=== PATIENT | female | born 1985 | race Caucasian/White ===

== ENCOUNTER 2017-07-06 05:36 | Day surgery (SDC) | payer MEDICAID ==
[~2017-07-06] VITALS: Ht 157.5 cm; Wt 61.7 kg
[2017-07-06 06:33] LABS: CHLORIDE 106 mEq/L (98-107)
[2017-07-06 06:38] LABS: BASOPHILS % 0.6 % (0.0-2.0); EOSINOPHILS % 2.5 % (0.0-5.0); HEMATOCRIT. 40.9 % (36.0-48.0); HEMOGLOBIN. 13.8 g/dL (12.0-16.0); LYMPHOCYTES % 34.9 % (20.0-50.0); MEAN CORPUSCULAR HEMOGLOBIN 28.9 pg (28.0-32.0); MEAN CORPUSCULAR VOLUME 85.5 fL (81.0-99.0); MONOCYTES % 7.3 % (2.0-8.0); NEUTROPHILS % 54.7 % (40.0-76.0); PLATELET 191 x1000/uL (130-400); RED BLOOD CELL COUNT 4.79 mill/uL (4.2-5.4); RED CELL DISTRIBUTION WIDTH 14.5 % (11.6-14.6)
[2017-07-06 06:40] LABS: CLARITY URINE CLEAR (CLEAR); COLOR URINE YELLOW (YELLOW); GLUCOSE URINE NEGATIVE (NEGATIVE); KETONES URINE NEGATIVE (NEGATIVE); LEUKOCYTE ESTERASE URINE TRACE (NEGATIVE); NITRITE URINE NEGATIVE (NEGATIVE); OCCULT BLOOD URINE NEGATIVE (NEGATIVE); PROTEIN URINE NEGATIVE (NEGATIVE); SPECIFIC GRAVITY URINE 1.023 (1.005-1.030); UROBILINOGEN URINE 0.2 E.U./dL (0.2-1.0)
[2017-07-06] MEDS ORDERED: LACTATED RINGERS 1,000 ML IV SCH (06:40)
[2017-07-06 06:41] LABS: CARBON DIOXIDE 30 mEq/L (21-32)
[2017-07-06 06:43] LABS: INR 1.1; PARTIAL THROMBOPLASTIN TIME 30.9 sec (24.0-34.0)
[2017-07-06 06:43] LABS: UCG SCREEN NEGATIVE
[2017-07-06] MEDS ORDERED: BUPIVACAINE HCL 0.5% (5MG/ML) 50ML ONE (07:31)
[2017-07-06] MEDS ORDERED: VASOPRESSIN 20 UNIT/ML 1ML ONE (08:46)
[2017-07-06] MEDS ORDERED: MIDAZOLAM HCL 2 MG/2 ML VIAL ONE (08:59)
[2017-07-06] MEDS ORDERED: FENTANYL CITRATE/PF 50MCG/ML 2ML VIAL ONE ×2 (09:01→09:26)
[2017-07-06] MEDS ORDERED: ROCURONIUM BROMIDE 10MG/ML VIAL 5ML IV ONE (09:03)
[2017-07-06] MEDS ORDERED: LIDOCAINE HCL 1% 20ML VIAL (Pyxis) INJ ONE (09:03)
[2017-07-06] MEDS ORDERED: PROPOFOL 200MG/20ML VIAL IV ONE (09:03)
[2017-07-06] MEDS ORDERED: CEFAZOLIN SODIUM 1000MG/VIAL ONE (09:16)
[2017-07-06] MEDS ORDERED: DEXAMETHASONE 4MG/ML 1ML VIAL ONE (09:18)
[2017-07-06] MEDS ORDERED: METOCLOPRAMIDE HCL 10MG/2ML VIAL ONE (09:18)
[2017-07-06] MEDS ORDERED: ONDANSETRON HCL 4MG/2ML VIAL ONE (09:18)
[2017-07-06] MEDS ORDERED: SODIUM CHLORIDE 0.9% 1,000 ML IV SCH (09:31)
[2017-07-06] MEDS ORDERED: SKIN ADHESIVE 0.7 GM EA TOP ONE (09:37)
[2017-07-06] MEDS ORDERED: HYDROMORPHONE HCL/PF 2MG/ML CPJ IV PRN (09:45)
[2017-07-06] MEDS ORDERED: MEPERIDINE HCL/PF 25MG/ML CPJ IV PRN (09:45)
[2017-07-06] MEDS ORDERED: ONDANSETRON HCL 4MG/2ML VIAL IV PRN (09:45)
[2017-07-06] MEDS ORDERED: GLYCOPYRROLATE 0.2 MG/ML 2ML VIAL ONE (09:49)
[2017-07-06 11:05] VITALS: BP 130/69
== END 2017-07-06 12:45 | disposition home or self-care (01) ==
LOC: OR 05:36
PROVIDERS: ATTEND Obstetrics & Gynecology
DX: Z64.1 Problems related to multiparity (principal); Z30.2 Encounter for sterilization; Z98.41 Cataract extraction status, right eye; Z96.1 Presence of intraocular lens
CPT/HCPCS: 36415; 58670; 80048; 81001; 81025; 85025; 85610; 85730; C1725; G0168; J0690; J1100; J2175; J2250; J2405; J2765; J3010; J3490; J7042; J7120; J2704

== ENCOUNTER 2018-06-30 17:52 | Emergency (ER) | payer MEDICAID ==
[~2018-06-30] VITALS: Ht 157.5 cm; Wt 65.0 kg
[2018-06-30 19:38] LABS: BASOPHILS % 0.3 % (0.0-2.0); CHLORIDE 105 mEq/L (98-107); EOSINOPHILS % 1.2 % (0.0-5.0); HEMATOCRIT. 38.1 % (36.0-48.0); HEMOGLOBIN. 12.9 g/dL (12.0-16.0); LYMPHOCYTES % 22.5 % (20.0-50.0); MEAN CORPUSCULAR HEMOGLOBIN 29.1 pg (28.0-32.0); MEAN PLATELET VOLUME 9.1 fl (7.4-10.4); MONOCYTES % 5.9 % (2.0-8.0); NEUTROPHILS % 70.1 % (40.0-76.0); PLATELET 189 x1000/uL (130-400); RED BLOOD CELL COUNT 4.43 mill/uL (4.2-5.4); RED CELL DISTRIBUTION WIDTH 13.9 % (11.6-14.6)
[2018-06-30 20:00] LABS: B-HCG QUANTITATIVE 51962 mIU/mL (<3)
[2018-06-30 21:36] LABS: CLARITY URINE CLEAR (CLEAR); COLOR URINE YELLOW (YELLOW); KETONES URINE 3+ (NEGATIVE); LEUKOCYTE ESTERASE URINE 1+ (NEGATIVE); NITRITE URINE NEGATIVE (NEGATIVE); OCCULT BLOOD URINE NEGATIVE (NEGATIVE); PH URINE 6.5 (4.5-8.0); PROTEIN URINE NEGATIVE (NEGATIVE); SPECIFIC GRAVITY URINE 1.019 (1.005-1.030); UROBILINOGEN URINE 0.2 E.U./dL (0.2-1.0)
[2018-06-30 22:09] VITALS: BP 108/51
== END 2018-06-30 22:15 | disposition home or self-care (01) ==
LOC: ER 17:52
DX: O23.12 Infections of bladder in pregnancy, second trimester (principal); O26.892 Other specified pregnancy related conditions, second trimester; Z3A.14 14 weeks gestation of pregnancy; Z98.51 Tubal ligation status
CPT/HCPCS: 36415; 76801; 80048; 81003; 84702; 85025; 86850; 86900; 86901; 99285; Z7610

== ENCOUNTER 2018-12-16 07:23 | Inpatient (IN) | payer MEDICAID ==
[~2018-12-16] VITALS: Ht 157.5 cm; Wt 74.8 kg
[2018-12-16] MEDS ORDERED: LACTATED RINGERS 1,000 ML IV SCH (07:35)
[2018-12-16] MEDS ORDERED: DEXT 5%/LR + PITOCIN 20UNITS/L 1,000 ML IV SCH ×3 (07:35→09:30)
[2018-12-16] MEDS ORDERED: LIDOCAINE HCL 1% 20ML VIAL (Pyxis) INJ INFIL SCH (07:45)
[2018-12-16] MEDS ORDERED: MISOPROSTOL 100MCG TABLET VG SCH (07:45)
[2018-12-16] MEDS ORDERED: NALOXONE HCL 0.4 MG/ML 1ML VIAL IM PRN (07:45)
[2018-12-16] MEDS ORDERED: METHYLERGONOVINE MALEATE 0.2 MG/ML IM PRN ×2 (07:45→09:30)
[2018-12-16] MEDS ORDERED: CARBOPROST TROMETHAMINE 250 MCG/ML AMPUL IM PRN (07:45)
[2018-12-16] MEDS ORDERED: DEXT 5%/LR + PITOCIN 20UNITS/L 1,000 ML IV ONE (07:47)
[2018-12-16] MEDS ORDERED: IBUPROFEN 800MG TABLET PO SCH (08:22)
[2018-12-16 08:49] LABS: HEMATOCRIT. 45.2 % (36.0-48.0); HEMOGLOBIN. 14.9 g/dL (12.0-16.0); MEAN CORPUSCULAR HEMOGLOBIN 28.8 pg (28.0-32.0); MEAN CORPUSCULAR VOLUME 87.7 fL (81.0-99.0); MEAN PLATELET VOLUME 11.3 fl (7.4-10.4); PLATELET 179 x1000/uL (130-400); RED BLOOD CELL COUNT 5.15 mill/uL (4.2-5.4); RED CELL DISTRIBUTION WIDTH 14.7 % (11.6-14.6)
[2018-12-16 08:51] LABS: INR 0.9; PARTIAL THROMBOPLASTIN TIME 29.8 sec (23.4-31.0); PROTHROMBIN TIME 9.2 sec (9.1-11.1)
[2018-12-16 08:52] LABS: CLARITY URINE TURBID (CLEAR); COLOR URINE RED (YELLOW); KETONES URINE 1+ (NEGATIVE); LEUKOCYTE ESTERASE URINE 2+ (NEGATIVE); OCCULT BLOOD URINE 3+ (NEGATIVE); PH URINE 7.5 (4.5-8.0); PROTEIN URINE 2+ (NEGATIVE); SPECIFIC GRAVITY URINE 1.007 (1.005-1.030)
[2018-12-16] MEDS ORDERED: RHO(D) IMMUNE GLOBULIN 300 MCG/SYR IM PRN (09:30)
[2018-12-16] MEDS ORDERED: LANOLIN OINT 0.25 GM TUBE TOP PRN (09:30)
[2018-12-16] MEDS ORDERED: IBUPROFEN 400MG TABLET PO PRN (09:30)
[2018-12-16 09:33] LABS: CANNABINOID URINE SCREEN NEGATIVE (NEGATIVE)
[2018-12-16 09:34] LABS: *BENZODIAZEPINES SCREEN URINE NEGATIVE (NEGATIVE)
[2018-12-16 09:36] LABS: *COCAINE SCREEN URINE NEGATIVE (NEGATIVE)
[2018-12-16 09:38] LABS: *AMPHETAMINES SCREEN URINE NEGATIVE (NEGATIVE); METHADONE URINE SCREEN NEGATIVE (NEGATIVE)
[2018-12-16 09:39] LABS: *BARBITURATES SCREEN URINE NEGATIVE (NEGATIVE); OPIATES URINE SCREEN NEGATIVE (NEGATIVE)
[2018-12-16 09:41] LABS: PHENCYCLIDINE URINE SCREEN NEGATIVE (NEGATIVE)
[2018-12-16 10:09] LABS: NITRITE URINE NEGATIVE (NEGATIVE)
[2018-12-16 10:10] VITALS: BP 112/61
[2018-12-16 10:40] VITALS: BP 122/71
[2018-12-16 10:56] LABS: PLATELET ESTIMATE NORMAL
[2018-12-16 11:41] LABS: HEPATITIS B SURFACE ANTIGEN NEGATIVE
[2018-12-16] MEDS: IBUPROFEN 800MG TABLET PO PRN (15:16)
[2018-12-16 17:30] VITALS: BP 128/78
[2018-12-16 20:30] VITALS: BP 122/51
[2018-12-16 22:00] VITALS: BP 118/58
[2018-12-17] MEDS: IBUPROFEN 800MG TABLET PO PRN ×2 (05:02→17:33)
[2018-12-17 05:08] VITALS: BP 120/58
[2018-12-17 07:39] LABS: BASOPHILS % 0.5 % (0.0-2.0); EOSINOPHILS % 1.2 % (0.0-5.0); HEMATOCRIT. 39.7 % (36.0-48.0); HEMOGLOBIN. 13.2 g/dL (12.0-16.0); MEAN CORPUSCULAR HEMOGLOBIN 29.2 pg (28.0-32.0); MEAN CORPUSCULAR VOLUME 87.5 fL (81.0-99.0); MEAN PLATELET VOLUME 10.2 fl (7.4-10.4); NEUTROPHILS % 74.3 % (40.0-76.0); PLATELET 115 x1000/uL (130-400); RED BLOOD CELL COUNT 4.54 mill/uL (4.2-5.4); RED CELL DISTRIBUTION WIDTH 14.9 % (11.6-14.6)
[2018-12-17] MEDS: PRENATAL VIT/FE FUMARATE/FA TABLET PO SCH (08:06)
[2018-12-17 09:05] VITALS: BP 110/65
[2018-12-17 14:56] VITALS: BP 114/70
[2018-12-17 22:41] VITALS: BP 110/63
[2018-12-18] MEDS: IBUPROFEN 800MG TABLET PO PRN ×2 (02:28→10:36)
[2018-12-18 04:00] VITALS: BP 116/58
[2018-12-18] MEDS: PRENATAL VIT/FE FUMARATE/FA TABLET PO SCH (09:39)
[2018-12-18] MEDS ORDERED: TETANUS, DIPHTHERIA, PERTUSSIS VAC/PF 0.5ML (>7YR OLD) IM ONE (10:00)
== END 2018-12-18 15:15 | disposition home or self-care (01) | DRG 560 ==
LOC: 8 EST LDRP 07:23 → OBSVTOIN 07:23 → 8EST 10:09
PROVIDERS: ADMIT Obstetrics & Gynecology; ATTEND Obstetrics & Gynecology
PROC: 10E0XZZ Delivery of Products of Conception, External Approach (ICD-10-PCS; principal; 2018-12-16)
DX: O69.1XX0 Labor and delivery complicated by cord around neck, with compression, not applicable or unspecified (principal); Z37.0 Single live birth; Z3A.38 38 weeks gestation of pregnancy
CPT/HCPCS: 36415; 80305; 86592; 86703; 86762; 86850; 86900; 87340; 99281; G0378; J2590

== ENCOUNTER 2020-04-16 20:11 | Emergency (ER) | payer MEDICAID ==
[~2020-04-16] VITALS: Ht 154.9 cm; Wt 64.0 kg
[2020-04-16] MEDS ORDERED: ASPIRIN 81MG TABLET PO ONE (21:00)
[2020-04-16] MEDS ORDERED: VISCOUS LIDOCAINE 2% 15 ML UDC PO ONE (21:00)
[2020-04-16] MEDS ORDERED: MAGNESIUM/ALUMINUM HYDROXIDE/SIMETHICONE 30ML UDC PO ONE (21:00)
[2020-04-16 21:06] LABS: BASOPHILS % 0.4 % (0.0-2.0); EOSINOPHILS % 2.3 % (0.0-5.0); HEMATOCRIT. 35.2 % (36.0-48.0); LYMPHOCYTES % 17.6 % (20.0-50.0); MEAN CORPUSCULAR HEMOGLOBIN 27.8 pg (28.0-32.0); MEAN CORPUSCULAR VOLUME 81.5 fL (81.0-99.0); MEAN PLATELET VOLUME 8.4 fl (7.4-10.4); MONOCYTES % 6.9 % (2.0-8.0); NEUTROPHILS % 72.8 % (40.0-76.0); PLATELET 193 x1000/uL (130-400); RED BLOOD CELL COUNT 4.31 mill/uL (4.2-5.4); RED CELL DISTRIBUTION WIDTH 15.5 % (11.6-14.6)
[2020-04-16 21:12] LABS: CHLORIDE 108 mEq/L (98-107)
[2020-04-16 21:14] LABS: HCG SCREEN NEGATIVE
[2020-04-16 21:28] LABS: CLARITY URINE CLEAR (CLEAR); COLOR URINE YELLOW (YELLOW); KETONES URINE NEGATIVE (NEGATIVE); LEUKOCYTE ESTERASE URINE 2+ (NEGATIVE); NITRITE URINE NEGATIVE (NEGATIVE); OCCULT BLOOD URINE 1+ (NEGATIVE); PROTEIN URINE NEGATIVE (NEGATIVE); SPECIFIC GRAVITY URINE 1.006 (1.005-1.030); UROBILINOGEN URINE 0.2 E.U./dL (0.2-1.0)
[2020-04-16] MEDS ORDERED: FAMOTIDINE 20MG TABLET PO ONE (22:30)
[2020-04-16] MEDS ORDERED: DIPHENHYDRAMINE 50MG/ML VIAL IM ONE (22:30)
[2020-04-16] MEDS ORDERED: PREDNISONE 20MG TABLET PO ONE (22:30)
[2020-04-16 23:37] VITALS: BP 118/89
== END 2020-04-16 23:39 | disposition home or self-care (01) ==
LOC: ER 20:11
DX: R07.89 Other chest pain (principal); R21 Rash and other nonspecific skin eruption; N39.0 Urinary tract infection, site not specified; Z98.51 Tubal ligation status
CPT/HCPCS: 36415; 71045; 80053; 81003; 81025; 83880; 84484; 84703; 85025; 93005; 96372; 99285; J1200; J7512; Z7610

== ENCOUNTER 2022-10-29 01:58 | Emergency (ER) | payer MEDICAID ==
[~2022-10-29] VITALS: Ht 160 cm; Wt 65.0 kg
[2022-10-29 02:33] VITALS: BP 110/66
[2022-10-29 04:14] LABS: CHLORIDE 105 mEq/L (98-107)
[2022-10-29] MEDS ORDERED: KETOROLAC 60MG/2ML VIAL IM STA (04:21)
[2022-10-29] MEDS ORDERED: ONDANSETRON 4MG ODT PO STA (04:21)
[2022-10-29 04:23] LABS: BASOPHILS % 0.2 % (0.0-2.0); EOSINOPHILS % 0.3 % (0.0-5.0); HEMATOCRIT. 35.6 % (36.0-48.0); LYMPHOCYTES % 8.9 % (20.0-50.0); MEAN CORPUSCULAR HEMOGLOBIN 27.6 pg (28.0-32.0); MEAN CORPUSCULAR VOLUME 81.5 fL (81.0-99.0); MEAN PLATELET VOLUME 7.9 fl (7.4-10.4); MONOCYTES % 6.5 % (2.0-8.0); NEUTROPHILS % 84.1 % (40.0-76.0); PLATELET 259 x1000/uL (130-400); RED BLOOD CELL COUNT 4.37 mill/uL (4.2-5.4); RED CELL DISTRIBUTION WIDTH 14.7 % (11.6-14.6)
[2022-10-29 05:02] LABS: CLARITY URINE CLEAR (CLEAR); COLOR URINE YELLOW (YELLOW); KETONES URINE 1+ (NEGATIVE); LEUKOCYTE ESTERASE URINE NEGATIVE (NEGATIVE); NITRITE URINE NEGATIVE (NEGATIVE); OCCULT BLOOD URINE 1+ (NEGATIVE); PROTEIN URINE NEGATIVE (NEGATIVE); UROBILINOGEN URINE 0.2 E.U./dL (0.2-1.0)
[2022-10-29] MEDS ORDERED: NAPR-681 PO (06:28)
[2022-10-29] MEDS ORDERED: TRAM50TA3 MT (06:38)
== END 2022-10-29 07:00 | disposition home or self-care (01) ==
LOC: ER 01:58
DX: J90 Pleural effusion, not elsewhere classified (principal); K76.89 Other specified diseases of liver; R10.11 Right upper quadrant pain; Z88.6 Allergy status to analgesic agent
CPT/HCPCS: 36415; 71045; 76705; 80053; 81003; 81025; 83690; 85025; 96372; 99285; J1885; Q0162

== ENCOUNTER 2023-11-19 10:50 | Emergency (ER) | payer MEDICAID ==
[~2023-11-19] VITALS: Ht 167.6 cm; Wt 63.0 kg
[~2023-11-19 10:50] MED LIST: NAPR-681 PO; TRAM50TA3 MT
[2023-11-19 11:06] VITALS: O2SAT 99
[2023-11-19] MEDS ORDERED: TETRACAINE 0.5% OPHTH DROPS 4ML BOTHEYE ONE (12:15)
[2023-11-19] MEDS ORDERED: FLUORESCEIN SODIUM 1MG/STRIP BOTHEYE ONE (12:15)
[2023-11-19] MEDS ORDERED: ACETAMINOPHEN 325MG TABLET PO STA (12:23)
[2023-11-19] MEDS ORDERED: FLUORESCEIN SODIUM 1MG/STRIP BOTHEYE NR ×2 (14:45→15:00)
[2023-11-19] MEDS ORDERED: ACETAMINOPHEN 325MG TABLET PO NR (14:45)
[2023-11-19] MEDS ORDERED: TETRACAINE 0.5% OPHTH DROPS 4ML BOTHEYE NR (14:45)
[2023-11-19] MEDS ORDERED: ERYT1OIN6 OP (15:09)
[2023-11-19 15:39] VITALS: BP 135/75; PULSE 83; RESP 18; TEMP 98.6
== END 2023-11-19 15:39 | disposition home or self-care (01) ==
LOC: ER 11:03
DX: H10.89 Other conjunctivitis (principal); R51.9 Headache, unspecified; J02.9 Acute pharyngitis, unspecified; Z88.6 Allergy status to analgesic agent
CPT/HCPCS: 99283